=== PATIENT | female | born 1950 | race African-American/Black ===

== ENCOUNTER 2016-12-23 10:28 | Emergency (ER) | payer OTHER ==
[~2016-12-23] VITALS: Ht 170.2 cm; Wt 113.4 kg
--- NOTE | 2016-12-23 12:21 | RAD ---
INDICATION: swallowed gauze, continued FB sensation COMPARISON: None. IMPRESSION: 3 views of chest and abdomen obtained. No focal airspace consolidation within the lungs. No intraperitoneal free air. Air scattered throughout the large and small bowel in a grossly nonobstructive pattern. There is a probable calcification superior to the left hip. No metallic density foreign body is seen. Please note that gauze would not be visible on x-ray unless it has a radiopaque marker.
--- NOTE | 2016-12-23 12:40 | PHYS DOC ---
Past Medical History Past Medical History: Arthritis, Diabetes-Type II, Hypertension Past Surgical History: Hysterectomy Additional Information: nonsmoker Alcohol Use: None Drug Use: None Adult General Chief Complaint Chief Complaint: OTHER COMPLAINTS HPI HPI Patient is a 66 year old female who presents stating that she thinks she swallowed gauze after a dental procedure. She had a tooth extracted and was seeing her dentist for packing of the extraction site for a dry socket. She was eating some chips when she felt the gauze packing come loose. She swallowed before she was able to spit out the gauze. This happened 1 week ago. She has been able to eat and drink normally. She has not had any nausea, vomiting, diarrhea, constipation, shortness of breath, chest pain, difficulty swallowing, or fevers. Her PCP is Dr. Lang. Review of Systems Review of Systems Constitutional: Denies fever or chills [] Eyes: Denies change in visual acuity, redness, or eye pain [] HENT: Denies nasal congestion or sore throat. Denies dysphagia. Respiratory: Denies cough or shortness of breath [] Cardiovascular: Denies chest pain, palpitations, or edema [] GI: Denies abdominal pain, nausea, vomiting, bloody stools or diarrhea [] Allergies Allergies Allergies Coded Allergies Type Severity Reaction Last Updated Verified No Known Drug Allergies 12/23/16 No Physical Exam Physical Exam Constitutional: Well developed, well nourished, no acute distress, non-toxic appearance. [] HENT: Normocephalic, atraumatic, bilateral external ears normal, oropharynx moist, no oral exudates, nose normal. [] Eyes: PERRLA, EOMI, conjunctiva normal, no discharge. [] Neck: Normal range of motion, no tenderness, supple, no stridor. [] Cardiovascular: Heart rate regular rhythm, no murmur [] Lungs & Thorax: Bilateral breath sounds clear to auscultation [] Abdomen: Bowel sounds normal, soft, no tenderness, no masses, no pulsatile masses. [] Skin: Warm, dry, no erythema, no rash. [] Neurologic: Alert and oriented X 3, normal motor function, normal sensory function, no focal deficits noted. [] Psychologic: Affect normal, judgement normal, mood normal. [] Current Patient Data Vital Signs Vital Signs Date Time Temp Pulse Resp B/P Pulse Ox O2 Delivery O2 Flow Rate FiO2 12/23/16 12:54 66 20 171/79 98 12/23/16 10:49 98.5 98.5 EKG EKG [] Radiology/Procedures Radiology/Procedures REASON: swallowed gauze, continued FB sensation PROCEDURE: ACUTE ABDOMEN SERIES INDICATION: swallowed gauze, continued FB sensation COMPARISON: None. IMPRESSION: 3 views of chest and abdomen obtained. No focal airspace consolidation within the lungs. No intraperitoneal free air. Air scattered throughout the large and small bowel in a grossly nonobstructive pattern. There is a probable calcification superior to the left hip. No metallic density foreign body is seen. Please note that gauze would not be visible on x-ray unless it has a radiopaque marker. Course & Med Decision Making Course & Med Decision Making Pertinent Labs and Imaging studies reviewed. (See chart for details) The patient presents with throat irritation and a foreign body sensation in her throat after swallowing gauze 1 week ago. She is able to eat and drink normally. She is not having difficulty breathing or swallowing. Her exam is unremarkable. Acute abdominal xray does not show any obstruction and the gauze is not seen, as expected. The patient is given contact information for GI for follow up if her symptoms continue. Return precautions were discussed. She verbalizes understanding and agrees with plan. Dragon Disclaimer Eli Disclaimer This electronic medical record was generated, in whole or in part, using a voice recognition dictation system. Departure Departure Impression: Primary Impression: Foreign body ingestion Disposition: 01 HOME, SELF-CARE Condition: STABLE Referrals: HÉCTOR SAN MD Patient Instructions: Nontoxic Ingestion, Swallowed Foreign Body, Adult, Easy- to-Read Additional Instructions: There were no concerning findings on your x-ray. Please follow-up with the GI doctor listed below if you continue to have the foreign body sensation. Return to emergency department if you have difficulty swallowing, difficulty breathing, vomiting, change in her bowel movements, or other new or concerning symptoms. Problem Qualifiers Primary Impression: Foreign body ingestion Encounter type: initial encounter Qualified Code: T18.9XXA - Foreign body of alimentary tract, part unspecified, initial encounter DOREEN BETTENCOURT Dec 23, 2016 12:40
[2016-12-23 12:54] VITALS: BP 171/79
== END 2016-12-23 12:55 | disposition home or self-care (01) ==
LOC: ER 10:28
DX: T18.9XXA Foreign body of alimentary tract, part unspecified, initial encounter (principal); I10 Essential (primary) hypertension; M19.90 Unspecified osteoarthritis, unspecified site; E11.9 Type 2 diabetes mellitus without complications; X58.XXXA Exposure to other specified factors, initial encounter; Y93.89 Activity, other specified; Y92.89 Other specified places as the place of occurrence of the external cause; Y99.8 Other external cause status
CPT/HCPCS: 74022; 99284